=== PATIENT | male | born 1955 | race Hispanic/Latino ===

== ENCOUNTER 2018-03-10 07:37 | Day surgery (SDC) | payer BC ==
[2015-02-03 12:45] VITALS: BMI 24.3
[2018-03-10] MEDS ORDERED: Benzocaine/Butamben/Tetracai 14-2-2% TOP Spray TOP ONE (07:56)
[2018-03-10] MEDS ORDERED: Lactated Ringer's 1,000 ML IV SCH (08:00)
[2018-03-10] MEDS ORDERED: Iohexol 240 (50 ml) ONE (08:27)
[2018-03-10] MEDS ORDERED: Midazolam 2 MG/2 ML VIAL ONE (08:39)
[2018-03-10] MEDS ORDERED: Propofol 10 mg/ml Inj (20 ML) ONE ×2 (08:40→10:10)
[2018-03-10] MEDS ORDERED: Desflurane Inhalation Anesthetic Liq (240 ml) ONE (08:46)
[2018-03-10 12:19] VITALS: BP 134/95; PULSE 53; RESP 16; TEMP 97.9; O2SAT 97
[2018-03-11 19:05] LABS: GASTRIN 45 pg/mL (<=100)
== END 2018-03-10 12:50 | disposition home or self-care (01) ==
LOC: ENDO 07:37
PROVIDERS: ATTEND Internal Medicine Gastroenterology
DX: K25.9 Gastric ulcer, unspecified as acute or chronic, without hemorrhage or perforation (principal); K29.50 Unspecified chronic gastritis without bleeding; K31.89 Other diseases of stomach and duodenum
CPT/HCPCS: 43239; 82941; 86316; 88305; 88312; 88342; J2001; J2250; J2704; J3010; J7040; J7120; Q9966

== ENCOUNTER 2018-06-18 18:23 | Emergency (ER) | payer BC ==
[2018-06-18 18:23] VITALS: BMI 24.3
[2018-06-18] MEDS ORDERED: Sodium Chloride 0.9% 1,000 ML IV STA (19:04)
[2018-06-18 20:22] LABS: HEMOGLOBIN 17.5 g/dL (14.0-18.0); MEAN CELL VOLUME 95.5 fl (80.0-105.0); MEAN CORPUSCULAR HGB CONC 34.6 g/dl (31.0-37.0); RBC 5.3 10^6/uL (3.5-6.1); RED CELL DISTRIBUTION WIDTH 15.3 % (11.5-14.5); WHITE BLOOD COUNT 15.8 10^3/uL (4.5-11.0)
[2018-06-18 20:23] LABS: BASO # 0.03 K/mm3 (0.0-2.0); BASO % 0.2 % (0.0-3.0); EOS # 0.3 (0.0-0.7); EOS % 1.7 % (1.5-5.0); GRAN # 12.85 (1.4-6.5); GRAN % 81.3 % (50.0-68.0); LYMPH # 1.7 (1.2-3.4); LYMPH % 10.8 % (22.0-35.0); MEAN PLATELET VOLUME 9.5 fl (7.0-11.0)
[2018-06-18 20:29] LABS: INR 1.05
[2018-06-18 20:42] LABS: ALB/GLOB RATIO 1.2 (1.1-1.8); ALBUMIN 4.3 g/dL (3.0-4.8); BLOOD UREA NITROGEN 11 mg/dL (7-21); CALCIUM 9.9 mg/dL (8.4-10.5); GFR NON-AFRICAN AMERICAN > 60
[2018-06-18 20:43] LABS: ALT/SGPT 23 U/L (7-56); AST/SGOT 25 U/L (17-59); TROPONIN I < 0.01 ng/mL
[2018-06-18 22:25] LABS: URINE BILIRUBIN SMALL (NEGATIVE); URINE BLOOD TRACE-LYSED (NEGATIVE); URINE GLUCOSE (UA) NEGATIVE (NEGATIVE); URINE LEUKOCYTE ESTERASE NEGATIVE Leu/uL (NEGATIVE); URINE PROTEIN TRACE mg/dL (<30 mg/dL); URINE UROBILINOGEN 0.2 E.U./dL (<1 E.U./dL)
[2018-06-18 22:30] LABS: URINE APPEARANCE CLEAR (CLEAR); URINE COLOR YELLOW (YELLOW)
[2018-06-18] MEDS ORDERED: cefTRIAXone 1 gm 1 GM/100 ML BAG IVPB STA (22:31)
--- NOTE | 2018-06-18 22:33 | ED PDOC ---
Arrival/HPI - General Chief Complaint: Syncope Historian: Patient - History of Present Illness Narrative History of Present Illness (Text): 06/18/18 22:32 63yo male with pmhx of Gastroparesis, anxiety who was bib EMS for having a near syncopal episode. Patient states he suddenly had a near syncopal episode after having a bowel movement. states he came back from his bathroom to sit down and was caught by his . Reports previous history of similar symptom. He denies headache, focal weakness, visual changes, nausea, vomiting, chest pain, SOB, diaphoresis, back pain, urinary symptoms, fever, URI symptoms. Past Medical History - Provider Review Nursing Documentation Reviewed: Yes - Infectious Disease Hx of Infectious Diseases: None - Tetanus Immunization Tetanus Immunization: Unknown - Cardiac Hx Pacemaker: Yes - Pulmonary Hx Respiratory Disorders: No - Neurological Hx Paralysis: No - HEENT Hx HEENT Disorder: No - Renal Hx Renal Disorder: No - Endocrine/Metabolic Hx Endocrine Disorders: No - Hematological/Oncological Hx Blood Transfusions: No Hx Blood Transfusion Reaction: No - Integumentary Hx Dermatological Disorder: No - Musculoskeletal/Rheumatological Hx Musculoskeletal Disorders: Yes - Gastrointestinal Hx Gastrointestinal Disorders: No - Genitourinary/Gynecological Hx Genitourinary Disorders: No - Psychiatric Hx Emotional Abuse: No Hx Physical Abuse: No Hx Substance Use: No - Past Surgical History Past Surgical History: No Previous - Surgical History Other/Comment: herniated disc sx 3 yrs ago - Anesthesia Hx Anesthesia Reactions: No Hx Malignant Hyperthermia: No - Suicidal Assessment Feels Threatened In Home Enviroment: No Family/Social History - Physician Review Nursing Documentation Reviewed: Yes Family/Social History: Unknown Family HX Smoking Status: Current Some Days Smoker Hx Alcohol Use: No Hx Substance Use: No Allergies/Home Meds Allergies/Adverse Reactions: Allergies No Known Allergies Allergy (Verified 06/29/14 10:32) Home Medications: Home Meds Medication Instructions Recorded Confirmed RX: Escitalopram [Lexapro] 20 mg PO TID 06/29/14 06/18/18 Alprazolam [Xanax] 0.5 mg PO DAILY PRN 06/15/16 06/18/18 Review of Systems - Physician Review All systems were reviewed & negative as marked: Yes - Review of Systems Constitutional: Normal Eyes: Normal ENT: Normal Respiratory: Normal Cardiovascular: Normal Gastrointestinal: Normal Genitourinary Male: Normal Musculoskeletal: Normal Skin: Normal Neurological: Normal, Other (Near syncope) Endocrine: Normal Hemo/Lymphatic: Normal Psychiatric: Normal Physical Exam Vital Signs Reviewed: Yes Vital Signs Temp Pulse Resp BP Pulse Ox 06/18/18 22:26 98.1 F 59 L 18 134/56 L 97 06/18/18 21:33 61 14 132/85 98 06/18/18 18:40 98.3 F 55 L 16 144/83 98 Temperature: Afebrile Blood Pressure: Normal Pulse: Regular Respiratory Rate: Normal Appearance: Positive for: Well-Appearing, Non-Toxic, Comfortable Pain Distress: None Mental Status: Positive for: Alert and Oriented X 3 - Systems Exam Head: Present: Atraumatic, Normocephalic Pupils: Present: PERRL Extroacular Muscles: Present: EOMI Conjunctiva: Present: Normal Mouth: Present: Moist Mucous Membranes Neck: Present: Normal Range of Motion Respiratory/Chest: Present: Clear to Auscultation, Good Air Exchange. No: Respiratory Distress, Accessory Muscle Use Cardiovascular: Present: Regular Rate and Rhythm, Normal S1, S2. No: Murmurs Abdomen: No: Tenderness, Distention, Peritoneal Signs Back: Present: Normal Inspection Upper Extremity: Present: Normal Inspection. No: Cyanosis, Edema Lower Extremity: Present: Normal Inspection. No: Edema Neurological: Present: GCS=15, CN II-XII Intact, Speech Normal, Motor Func Grossly Intact, Normal Sensory Function, Normal Cerebellar Funct, Gait Normal, Memory Normal, Normal 2Pt Descrimination, Other (No focal neurological deficit) Skin: Present: Warm, Dry, Normal Color. No: Rashes Psychiatric: Present: Alert, Oriented x 3, Normal Insight, Normal Concentration Medical Decision Making ED Course and Treatment: 06/19/18 01:30 PT who presented to ED for states history. He was neurologically intact in ED. Hemodynamically stable Labs EKG Chest xray Urinalysis EKG Electronic atrial pacemaker; LAD; LVH with QRS @52bpm. Pt's pacemaker was checked using [employer] in ED and it showed no lead performance issues was observed Lab was reviewed and leukocytosis with a shift was noted. Head CT - negative Blood culture and urine culture was added Rocephin added Pt was placed on OBS for IV abx and further evaluation Case was DW Dr. lopez and he accepted pt for admission. Result and place was the pt and he agreed - Lab Interpretations Lab Results: 06/18/18 19:57 06/18/18 19:57 Lab Results 06/18/18 22:17: Urine Color Yellow, Urine Appearance Clear, Urine pH 6.0, Ur Specific [place] 1.025, Urine Protein Trace H, Urine Glucose (UA) Negative, Urine Ketones Trace H, Urine Blood Trace-lysed H, Urine Nitrate Negative, Urine Bilirubin Small H, Urine Urobilinogen 0.2, Ur Leukocyte Esterase Negative, Urine RBC Pending, Urine WBC Pending 06/18/18 19:57: Sodium 137, Potassium 4.6, Chloride 100, Carbon Dioxide 30, Anion Gap 12, BUN 11, Creatinine 0.9, Est GFR ( Amer) > 60, Est GFR (Non- Af Amer) > 60, Random Glucose 117 H, Calcium 9.9, Magnesium 1.9, Total Bilirubin 0.8, AST 25, ALT 23, Alkaline Phosphatase 81, Lactate Dehydrogenase 374, Total Creatine Kinase 34 L, Troponin I < 0.01, Total Protein 7.7, Albumin 4.3, Globulin 3.5, Albumin/Globulin Ratio 1.2 06/18/18 19:57: PT 12.0, INR 1.05, APTT 27.0 06/18/18 19:57: WBC 15.8 H, RBC 5.30, Hgb 17.5, Hct 50.6, MCV 95.5, MCH 33.0, MCHC 34.6, RDW 15.3 H, Plt Count 164, MPV 9.5, Gran % 81.3 H, Lymph % (Auto) 10.8 L, [place] % (Auto) 6.0, Eos % (Auto) 1.7, Baso % (Auto) 0.2, Gran # 12.85 H, Lymph # (Auto) 1.7, Nicholas # (Auto) 1.0 H, Eos # (Auto) 0.3, Baso # (Auto) 0.03 - RAD Interpretation Radiology Orders: 06/18/18 19:02 HEAD W/O CONTRAST [CT] Stat 06/18/18 20:49 CHEST PORTABLE [RAD] Stat - Medication Orders Current Medication Orders: Ceftriaxone Sodium (Rocephin 1 Gram Ivpb) 1 gm in 100 mls @ 200 mls/hr IVPB STAT STA; Protocol Stop: 06/18/18 23:00 Discontinued Medications Sodium Chloride (Sodium Chloride 0.9%) 1,000 mls @ 999 mls/hr IV .Q1H1M STA Stop: 06/18/18 20:04 Last Admin: 06/18/18 19:45 Dose: 999 mls/hr eMAR Start Stop Document 06/18/18 19:45 [email or web address] (Rec: 06/18/18 19:46 [email or web address] [id number]) Intravenous Solution Start Date 06/18/18 Start Time 19:46 Disposition/Present on Arrival - Present on Arrival Any Indicators Present on Arrival: No History of DVT/PE: No History of Uncontrolled Diabetes: No Urinary Catheter: No History of Decub. Ulcer: No History Surgical Site Infection Following: None - Disposition Have Diagnosis and Disposition been Completed?: Yes Diagnosis: Leukocytosis, Near syncope Disposition: HOSPITALIZED Disposition Time: 22:25 Patient Plan: Admission Patient Problems: Current Active Problems Problem Status Onset Leukocytosis Acute Near syncope Acute Condition: FAIR
[2018-06-18 22:37] LABS: URINE BACTERIA FEW (NEG)
[2018-06-19 05:18] VITALS: BP 140/80; PULSE 56; RESP 26; TEMP 98.9; O2SAT 94
--- NOTE | 2018-06-19 08:10 | CT ---
Date of service: 06/18/2018 PROCEDURE: CT HEAD WITHOUT CONTRAST. HISTORY: syncope COMPARISON: 06/29/2014 TECHNIQUE: Axial computed tomography images were obtained through the head/brain without intravenous contrast. Radiation dose: Total exam DLP = 938.19 mGy-cm. This CT exam was performed using one or more of the following dose reduction techniques: Automated exposure control, adjustment of the mA and/or kV according to patient size, and/or use of iterative reconstruction technique. FINDINGS: HEMORRHAGE: No intracranial hemorrhage. BRAIN: No mass effect or edema. Minimal microvascular changes adjacent to the left frontal horn. No acute findings VENTRICLES: Unremarkable. No hydrocephalus. CALVARIUM: Unremarkable. PARANASAL SINUSES: Unremarkable as visualized. No significant inflammatory changes. MASTOID AIR CELLS: Unremarkable as visualized. No inflammatory changes. OTHER FINDINGS: The report concurs with the preliminary [facility] report IMPRESSION: No acute intracranial finding
--- NOTE | 2018-06-19 09:26 | CP.PCM.HP ---
<Ej Kirkland - Last Filed: 06/19/18 19:29> History of Present Illness - History of Present Illness History of Present Illness: H&P for Dr. Bradshaw Service CC: Syncopal episode This is a 63 yo M with PMH of gastroparesis, anxiety, dyslipidemia, and symptomatic persistent bradycardia s/p pacer placement who presented to [facility] via EMS for syncopal episode at home. As per patient, he was straining to move his bowels on the toilet, when he suddenly felt diaphoretic, lightheaded, and dizzy. He attempted to make it from his bathroom to his couch to lay down, but was unable to make it, so sat down on the floor and called for his , which is when his memories end. He reports awakening after what he believes was several minutes, with his holding him upright and calling EMS. Denies tongue biting, loss of bladder/bowel control, head trauma, head/neck pain or stiffness, fevers, vision changes, focal weakness, shortness of breath, chest pain, palpitations, focal or generalized paresthesias. At time of exam, he is fully awake, alert, oriented to self/location/year, able to move all extremities spontaneously and on command. He denies any report from his of generalized shaking or tremors. Denies any similar event in the past. Reports compliance with home meds, no recent med changes, no issues with PO intake (which is regular), no recent head trauma, no falls, normal gait. Of note, in the ED, EKG obtained was notable for atrially paced rhythm, Pacer interrogation was unremarkable, and Head CT was negative for acute intracranial process. 12-system ROS reviewed and negative, except as above. 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 Tate Present on Admission - Present on Admission Any Indicators Present on Admission: No History of DVT/PE: No History of Uncontrolled Diabetes: No Review of Systems - Review of Systems All systems: reviewed and no additional remarkable complaints except (as per HPI) Past Patient History - Infectious Disease Hx of Infectious Diseases: None - Tetanus Immunizations Tetanus Immunization: Unknown - Past Social History Smoking Status: Current Some Days Smoker - CARDIAC Hx Pacemaker: Yes - PULMONARY Hx Respiratory Disorders: No - NEUROLOGICAL Hx Paralysis: No - HEENT Hx HEENT Problems: No - RENAL Hx Chronic Kidney Disease: No - ENDOCRINE/METABOLIC Hx Endocrine Disorders: No - HEMATOLOGICAL/ONCOLOGICAL Hx Blood Transfusions: No Hx Blood Transfusion Reaction: No - INTEGUMENTARY Hx Dermatological Problems: No - MUSCULOSKELETAL/RHEUMATOLOGICAL Hx Musculoskeletal Disorders: Yes - GASTROINTESTINAL Hx Gastrointestinal Disorders: No - GENITOURINARY/GYNECOLOGICAL Hx Genitourinary Disorders: No - PSYCHIATRIC Hx Emotional Abuse: No Hx Physical Abuse: No Hx Substance Use: No - SURGICAL HISTORY Other/Comment: herniated disc sx 3 yrs ago - ANESTHESIA Hx Anesthesia Reactions: No Hx Malignant Hyperthermia: No Meds Home Medications: Home Medication List Medication Instructions Recorded Confirmed Type RX: Doxycycline Hyclate [Doryx] 100 mg PO BID #28 cap 06/19/18 Rx Allergies/Adverse Reactions: Allergies Allergy/AdvReac Type Severity Reaction Status Date / Time No Known Allergies Allergy Verified 06/29/14 10:32 Physical Exam - Constitutional Appears: Non-toxic, No Acute Distress - Head Exam Head Exam: ATRAUMATIC, NORMAL INSPECTION, NORMOCEPHALIC - Eye Exam Eye Exam: EOMI, Normal appearance, PERRL. absent: Conjunctival injection, Scleral icterus Pupil Exam: PERRL. absent: Fixed, Irregular, Unequal - ENT Exam ENT Exam: Mucous Membranes Moist. absent: Mucous Membranes Dry - Neck Exam Neck exam: Positive for: Full Rom, Normal Inspection. Negative for: Lymphadenopathy, Tenderness - Respiratory Exam Respiratory Exam: Clear to Auscultation Bilateral, NORMAL BREATHING PATTERN. absent: Accessory Muscle Use, Chest Wall Tenderness, Decreased Breath Sounds, Prolonged Expiratory Phase, Rales, Rhonchi, Wheezes, Stridor - Cardiovascular Exam Cardiovascular Exam: Bradycardia, REGULAR RHYTHM, +S1, +S2. absent: Tachycardia, Irregular Rhythm, JVD, +S4 - GI/Abdominal Exam GI & Abdominal Exam: Hypoactive Bowel Sounds, Soft. absent: Diminished Bowel Sounds, Distended, Firm, Hyperactive Bowel Sounds, Normal Bowel Sounds, Rigid, Tenderness - Extremities Exam Extremities exam: Positive for: normal capillary refill, normal inspection, pedal pulses present. Negative for: calf tenderness, pedal edema, tenderness - Back Exam Back exam: absent: CVA tenderness (L), CVA tenderness (R) - Neurological Exam Additional comments: awake and alert, following all commands, motor grossly intact and equal in all extremities, 5/5 flexion/extension/jelly maker strength in bilateral upper extremities No appreciable facial droop, uvula midline, no tongue deviation with extrusion - Psychiatric Exam Psychiatric exam: Normal Affect, Normal Mood - Skin Skin Exam: Dry, Intact, Normal Color, Warm Results - Vital Signs Recent Vital Signs: Last Vital Signs Temp 98.9 F 06/19/18 05:17 Pulse 56 L 06/19/18 05:17 Resp 26 H 06/19/18 05:17 BP 140/80 06/19/18 05:17 Pulse Ox 94 L 06/19/18 05:17 - Labs Result Diagrams: 06/18/18 19:57 06/18/18 19:57 Labs: Laboratory Results - last 24 hr 06/18/18 06/18/18 06/18/18 19:57 19:57 19:57 WBC 15.8 H RBC 5.30 Hgb 17.5 Hct 50.6 MCV 95.5 MCH 33.0 MCHC 34.6 RDW 15.3 H Plt Count 164 MPV 9.5 Gran % 81.3 H Lymph % (Auto) 10.8 L [place] % (Auto) 6.0 Eos % (Auto) 1.7 Baso % (Auto) 0.2 Gran # 12.85 H Lymph # (Auto) 1.7 [place] # (Auto) 1.0 H Eos # (Auto) 0.3 Baso # (Auto) 0.03 PT 12.0 INR 1.05 APTT 27.0 Sodium 137 Potassium 4.6 Chloride 100 Carbon Dioxide 30 Anion Gap 12 BUN 11 Creatinine 0.9 Est GFR ( Amer) > 60 Est GFR (Non-Af Amer) > 60 Random Glucose 117 H Calcium 9.9 Magnesium 1.9 Total Bilirubin 0.8 AST 25 ALT 23 Alkaline Phosphatase 81 Lactate Dehydrogenase 374 Total Creatine Kinase 34 L Troponin I < 0.01 Total Protein 7.7 Albumin 4.3 Globulin 3.5 Albumin/Globulin Ratio 1.2 Urine Color Urine Appearance Urine pH Ur Specific [place] Urine Protein Urine Glucose (UA) Urine Ketones Urine Blood Urine Nitrate Urine Bilirubin Urine Urobilinogen Ur Leukocyte Esterase Urine RBC Urine WBC Ur Epithelial Cells Urine Bacteria 06/18/18 22:17 WBC RBC Hgb Hct MCV MCH MCHC RDW Plt Count MPV Gran % Lymph % (Auto) [place] % (Auto) Eos % (Auto) Baso % (Auto) Gran # Lymph # (Auto) [place] # (Auto) Eos # (Auto) Baso # (Auto) PT INR APTT Sodium Potassium Chloride Carbon Dioxide Anion Gap BUN Creatinine Est GFR ( Amer) Est GFR (Non-Af Amer) Random Glucose Calcium Magnesium Total Bilirubin AST ALT Alkaline Phosphatase Lactate Dehydrogenase Total Creatine Kinase Troponin I Total Protein Albumin Globulin Albumin/Globulin Ratio Urine Color Yellow Urine Appearance Clear Urine pH 6.0 Ur Specific [place] 1.025 Urine Protein Trace H Urine Glucose (UA) Negative Urine Ketones Trace H Urine Blood Trace-lysed H Urine Nitrate Negative Urine Bilirubin Small H Urine Urobilinogen 0.2 Ur Leukocyte Esterase Negative Urine RBC 1 - 3 Urine WBC 2 - 5 Ur Epithelial Cells 3 - 4 Urine Bacteria Few Assessment & Plan - Assessment and Plan (Free Text) Assessment: This is a 63 yo M with PMH of gastroparesis, anxiety, dyslipidemia, and symptomatic persistent bradycardia s/p pacer placement who presented to [facility] via EMS for syncopal episode at home. As per patient, he was straining to move his bowels on the toilet, when he suddenly felt diaphoretic, lightheaded, and dizzy. Suspect likely vasovagal syncope 2/2 straining to move bowels, arrhythmia and acute large stroke ruled out. Plan: 1) syncopal episode 2) gastroparesis 3) anxiety 4) dyslipidemia 5) symptomatic persistent bradycardia s/p pacer - normal interrogation ddx: vasovagal syncope vs acute stroke vs seizure vs arrhythmia vs hypoglycemia 2/2 poor intake from gastroparesis -not hypoglycemic on labs and reports routine PO intake at home despite gastroparesis -EKG and pacer interrogation unremarkable, trop x1 negative -Head CT negative for acute intracranial findings, no bleeds or large strokes observed -straining to move bowels prior to syncopal episode, rapid recovery, and lack of any neurologic deficits strongly suggestive of vasovagal over seizure/stroke -Leukocytosis noted, ID consulted, appreciate their recs; Docy 100mg BID x14 days, testing for Lyme's and HIV, follow up with ID in 2 weeks At this time, patient's symptoms have resolved, he is hemodynamically stable, and is appropriate for discharge. Prescription for Doxycycline transmitted to his pharmacy and patient's notified of the prescription and follow up with ID in 2 weeks (unable to reach patient and his cell phone voicemail was full). He will resume all other home medications as prescribed. Additionally, he will follow up with his PMD (Dr. Tate) within 1 week, and will return to the ED if he experiences worsening or new concerning symptoms. Reviewed and discussed with attending, Dr. Bradshaw <Freddy Bradshaw S - Last Filed: 06/22/18 09:32> Results - Vital Signs Recent Vital Signs: Last Vital Signs Temp 98.9 F 06/19/18 05:17 Pulse 56 L 06/19/18 05:17 Resp 26 H 06/19/18 05:17 BP 140/80 06/19/18 05:17 Pulse Ox 94 L 06/19/18 05:17 - Labs Result Diagrams: 06/18/18 19:57 06/18/18 19:57 Assessment & Plan - Assessment and Plan (Free Text) Plan: Pt seen and examined. This is a late entry. I reviewed the note of the medical lab tech instructor and I agree with the note including the assessment and plan. I reviewed the medications and last labs. Pt with syncopal episode. He has hx of these episodes in the past. He does not wish to stay in the hospital. He will be given another dose of IV Rocephin. He had a vasovagal episode. CT head shows no acute abnormalities. He has a pacemaker and get checked regularly. He will be discharged home and f/u with PMD. The pt will be given Doxy to take as outpt. Pt with anxiety history and it is controlled on his medications. He will continue his medications from home. He has dyslipidemia. Unlikely he had a stroke or Sz at home.
--- NOTE | 2018-06-19 09:30 | CARD ---
APPROVED REPORT Date of service: 06/18/2018 EKG Measurement Heart [id number] <Conclusion> Electronic atrial pacemaker Left axis deviation Left ventricular hypertrophy with QRS widening Abnormal ECG
[2018-06-19] MEDS ORDERED: cefTRIAXone 1 gm 1 GM/100 ML BAG IVPB SCH (10:00)
--- NOTE | 2018-06-19 11:01 | RAD ---
Date of service: 06/18/2018 HISTORY: admission COMPARISON: Portable chest 06/29/2014. FINDINGS: LUNGS: No active pulmonary disease. PLEURA: No significant pleural effusion identified, no pneumothorax apparent. CARDIOVASCULAR: No aortic atherosclerotic calcification present. Normal cardiac size. No pulmonary vascular congestion. Interval deployment of permanent cardiac pacemaker is noted with generator noted at the left pectoralis region and 2 leads identified entering into the chest by an apparent left subclavian approach and entering into the region of the heart terminally. OSSEOUS STRUCTURES: No significant abnormalities. VISUALIZED UPPER ABDOMEN: Normal. OTHER FINDINGS: None. IMPRESSION: No interval acute cardiopulmonary disease appreciated. Interval bipolar permanent cardiac pacemaker deployment as discussed above.
--- NOTE | 2018-06-19 17:43 | CON ---
DATE: 06/19/2018 HISTORY OF PRESENT ILLNESS: This is a 63-year-old male with history of gastroparesis who in the past has had significant workup of his nausea and gastroparesis. He is not a diabetic. He states he has had multiple upper endoscopy and lower endoscopy, which has been negative. He has had an MRI of the head, CAT scan of the head, CAT scan of his chest and abdomen and significant workup. He has been followed by various doctors in [facility] including a neurologist in [place] and has had extensive workup. The etiology of gastroparesis and nausea has been unclear. PAST MEDICAL HISTORY: Significant for gastroparesis, depression. PAST SURGICAL HISTORY: Significant for a pacemaker which was placed for bradycardia. ALLERGIES: HE HAS NO KNOWN ALLERGIES. SOCIAL HISTORY: He lives here in [place]. He does have a dog. [place] He is exposed territory outside of [place]. MEDICATIONS: At home include the patient to be on Lexapro and Xanax. PHYSICAL EXAMINATION GENERAL: The patient is in bed, in no acute distress. He answers questions appropriately. VITAL SIGNS: Temperature 98, respiratory rate 26, heart rate of 55, blood pressure 130/50. HEENT: Unremarkable. NECK: Supple. LUNGS: Decreased breath sounds. HEART: Normal S1, S2. ABDOMEN: Soft. LABORATORY DATA: White count of 15,800, hemoglobin of 17, hematocrit is 50, and platelets of 164, 81% granulocytosis, coagulation is noted. Chemistries are reviewed. Urinalysis is noted. DIAGNOSTIC DATA: The patient also had a CAT scan of the head which is negative. Chest x-ray which is negative. The history and physical examination is reviewed. ASSESSMENT AND PLAN: A 63-year-old male with history of anxiety and gastroparesis, who has leukocytosis, dyspnea, and with systemic inflammatory response syndrome. He has a dog. He does have bradycardia with a pacemaker and syncope. Workup as per cardiology. The patient has seen Dr. Whitley in the past. We will start empiric doxycycline, order to . Because of his age, we will order a human immunodeficiency virus test and cultures have been ordered. The patient states he wants to go home and follow up with Dr. Tate as outpatient. Blood and urine cultures will be followed. Recommend empiric doxycycline for now pending initial results. We will follow with you. Juma See MD
== END 2018-06-19 10:00 | disposition home or self-care (01) ==
LOC: ED 18:23 → ERH 22:29 → UNDOADMOB 22:29 → ERH 06-19 09:03
DX: R55 Syncope and collapse (principal); D72.829 Elevated white blood cell count, unspecified; K31.84 Gastroparesis; E78.5 Hyperlipidemia, unspecified; F41.9 Anxiety disorder, unspecified; Z95.0 Presence of cardiac pacemaker; F17.210 Nicotine dependence, cigarettes, uncomplicated
CPT/HCPCS: 70450; 71045; 80053; 81001; 82550; 83615; 83735; 84484; 85025; 85610; 85730; 87040; 87086; 93005; 96374; 96376; 99285; J0696; J7030

== ENCOUNTER 2018-11-14 13:23 | Day surgery (SDC) | payer BC ==
[2018-11-12 11:14] VITALS: BMI 19.9
[~2018-11-14 13:23] MED LIST: Sodium Chloride 0.9% 1,000 ML IV SCH
[2018-11-14 15:44] LABS: BASO # 0.03 K/mm3 (0.0-2.0); BASO % 0.3 % (0.0-3.0); EOS # 0.2 (0.0-0.7); EOS % 2.4 % (1.5-5.0); HEMOGLOBIN 17.2 g/dL (14.0-18.0); LYMPH % 21.1 % (22.0-35.0); MEAN CELL VOLUME 94.7 fl (80.0-105.0); MEAN CORPUSCULAR HEMOGLOBIN 32.8 pg (25.0-35.0); MEAN CORPUSCULAR HGB CONC 34.6 g/dl (31.0-37.0); MONO # 0.9 (0.1-0.6); MONO % 9.3 % (1.0-6.0); RBC 5.25 10^6/uL (3.5-6.1); RED CELL DISTRIBUTION WIDTH 14.4 % (11.5-14.5); WHITE BLOOD COUNT 9.5 10^3/uL (4.5-11.0)
[2018-11-14] MEDS ORDERED: Sodium Chloride 0.9% 1,000 ML IV SCH (15:45)
[2018-11-14 15:47] LABS: INR 1.08; PARTIAL THROMBOPLASTIN TIME 34.2 Seconds (26.9-38.3)
[2018-11-14] MEDS ORDERED: Propofol 10 mg/ml Inj (20 ML) ONE ×5 (15:58→17:22)
[2018-11-14] MEDS ORDERED: Midazolam 2 MG/2 ML VIAL ONE (15:58)
[2018-11-14] MEDS ORDERED: Ketamine 10 mg/ml Inj (20 ml) ONE (16:04)
[2018-11-14] MEDS ORDERED: ePHEDrine 50 mg/ml Inj ONE (17:10)
[2018-11-14] MEDS ORDERED: HYDROmorphone 0.5 mg/0.5 ml ISec IVP PRN (17:57)
--- NOTE | 2018-11-14 18:20 | RAD ---
Date of service: 11/14/2018 PROCEDURE: Fluoroscopy up to 1 hr. HISTORY: G-TUBE PLACEMENT COMPARISON: None TECHNIQUE: Total fluoroscopic time (continuous mode) utilized during the procedure 43.0 seconds. Total exam DLP: 6.00 (mGy). FINDINGS: Submitted images from the current procedure: 2.0 IMPRESSION: Less than 1 hr fluoroscopic assistance provided during performance of the procedure.
[2018-11-14] MEDS ORDERED: HYDROmorphone 0.5 mg/0.5 ml ISec IVP ONE ×2 (18:28→18:50)
[2018-11-14] MEDS ORDERED: HYDROmorphone 0.5 mg/0.5 ml ISec ONE ×2 (18:28→18:53)
[2018-11-14] MEDS ORDERED: Dextrose 5%/0.45% NS 1,000 ML IV SCH (19:15)
[2018-11-14] MEDS: HYDROmorphone 0.5 mg/0.5 ml ISec IVP PRN (21:27)
--- NOTE | 2018-11-14 21:52 | CP.PCM.CON ---
<Ruma Umaña - Last Filed: 11/14/18 21:45> History of Present Illness - History of Present Illness History of Present Illness: General Surgery Dr. Gage 63 y/o M w/ PMHx of bradycardia w/ pacemaker [place] [facility] [place]-J placement. Pt has been suffering from intractable nausea for months w/ considerable weight loss 2/2 anorexia. Pt was worked up as outpatient w/ no identifiable cause for nausea. Decision was made to place feeding tube 2/2 malnutrition. Pt tolerated the procedure well w/ no complications. Post- procedure, pt c/o significant nausea, now resolved. Pt admits to manageable abd pain, and denies CP, SOB, F/C, N/V. PMHx: bradycardia, syncope, polycythemia, anxiety, herniated disks, pilonidal cyst Meds: reviewed in chart NKDA PSHx: R total knee, cardiac cath, pacemaker, discectomy, EGD w/ botox inj, SHx: occasional marijuana, <1ppd x40yrs FHx: noncontributory Review of Systems - Review of Systems All systems: reviewed and no additional remarkable complaints except (see HPI) Past Patient History - Infectious Disease Hx of Infectious Diseases: None - Tetanus Immunizations Tetanus Immunization: Unknown - Past Social History Smoking Status: Current Some Days Smoker - CARDIAC Hx Pacemaker: Yes - PULMONARY Hx Respiratory Disorders: No - NEUROLOGICAL Hx Paralysis: No - HEENT Hx HEENT Problems: No - RENAL Hx Chronic Kidney Disease: No - ENDOCRINE/METABOLIC Hx Endocrine Disorders: No - HEMATOLOGICAL/ONCOLOGICAL Hx Blood Transfusions: No Hx Blood Transfusion Reaction: No - INTEGUMENTARY Hx Dermatological Problems: No - MUSCULOSKELETAL/RHEUMATOLOGICAL Hx Musculoskeletal Disorders: Yes - GASTROINTESTINAL Hx Gastrointestinal Disorders: No - GENITOURINARY/GYNECOLOGICAL Hx Genitourinary Disorders: No - PSYCHIATRIC Hx Emotional Abuse: No Hx Physical Abuse: No Hx Substance Use: Yes (MED[employer] MARIJUANA RARELY) - SURGICAL HISTORY Hx Surgeries: Yes - ANESTHESIA Hx Anesthesia Reactions: No Hx Malignant Hyperthermia: No Meds Allergies/Adverse Reactions: Allergies Allergy/AdvReac Type Severity Reaction Status Date / Time No Known Allergies Allergy Verified 06/29/14 10:32 - Medications Medications: Current Medications Hydromorphone HCl (Dilaudid) 0.5 mg IVP Q6H PRN PRN Reason: Pain, severe (8-10) Last Admin: 05/03/19 21:27 Dose: 0.5 mg Dextrose/Sodium Chloride (Dextrose 5%/0.45% Ns 1000 Ml) 1,000 mls @ 80 mls/hr IV .[id number] [facility] Metoclopramide HCl (Reglan) 10 mg IV ONCE PRN PRN Reason: Nausea/Vomiting Ondansetron HCl (Zofran Inj) 4 mg IVP ONCE PRN PRN Reason: Nausea/Vomiting Ondansetron HCl (Zofran Inj) 4 mg IVP Q6H PRN PRN Reason: Nausea/Vomiting Pantoprazole Sodium (Protonix Inj) 40 mg IVP Q12 [facility] Last Admin: 11/14/18 21:27 Dose: 40 mg Physical Exam - Constitutional Appears: Non-toxic, No Acute Distress - Head Exam Head Exam: NORMAL INSPECTION - Eye Exam Eye Exam: Normal appearance - ENT Exam ENT Exam: Mucous Membranes Moist - Respiratory Exam Respiratory Exam: NORMAL BREATHING PATTERN. absent: Accessory Muscle Use, Respiratory Distress - Cardiovascular Exam Cardiovascular Exam: REGULAR RHYTHM. absent: Bradycardia, Tachycardia - GI/Abdominal Exam GI & Abdominal Exam: Soft, Tenderness (appropriate TTP). absent: Distended, Firm, Guarding, Rebound, Rigid Additional comments: PEG-J in place, site c/d/i - Extremities Exam Extremities exam: Positive for: normal inspection - Neurological Exam Neurological exam: Alert, Oriented x3 - Psychiatric Exam Psychiatric exam: Normal Affect, Normal Mood - Skin Skin Exam: Dry, Intact, Normal Color, Warm Results - Vital Signs Recent Vital Signs: Last Vital Signs Temp 97.5 F L 11/14/18 19:27 Pulse 63 11/14/18 19:27 Resp 18 11/14/18 19:27 BP 122/73 11/14/18 19:27 Pulse Ox 98 11/14/18 19:27 - Labs Result Diagrams: 11/14/18 15:00 Labs: Laboratory Results - last 24 hr 11/14/18 11/14/18 15:00 15:00 WBC 9.5 D RBC 5.25 Hgb 17.2 Hct 49.7 MCV 94.7 MCH 32.8 MCHC 34.6 RDW 14.4 Plt Count 226 MPV 10.0 Neut % (Auto) 66.9 Lymph % (Auto) 21.1 L [place] % (Auto) 9.3 H Eos % (Auto) 2.4 Baso % (Auto) 0.3 Lymph # (Auto) 2.0 [place]ite # (Auto) 0.9 H Eos # (Auto) 0.2 Baso # (Auto) 0.03 Absolute Neuts (auto) 6.34 PT 12.0 INR 1.08 APTT 34.2 Assessment & Plan - Assessment and Plan (Free Text) Assessment: 63 y/o M w/ intractable nausea of unknown cause s/p PEG-J placement by GI Plan: - cont tube management per GI - restart home meds - anti-emetics - pain management - monitor vitals - GI/DVT PPx - encourage OOB to chair/Amb Pt discussed w/ Dr. Merari Umaña PGY3 <Steven Gage - Last Filed: 11/18/18 16:32> Results - Vital Signs Recent Vital Signs: Last Vital Signs Temp 98.1 F 11/16/18 14:00 Pulse 62 11/16/18 14:00 Resp 18 11/16/18 14:00 BP 138/77 11/16/18 14:00 Pulse Ox 94 L 11/16/18 14:00 - Labs Result Diagrams: 11/16/18 06:30 11/16/18 06:30 Assessment & Plan - Assessment and Plan (Free Text) Plan: Patient was seen, evaluated and examined by me at the bedside. I agree with assessment and plan as stated in the resident's note.
[2018-11-14] MEDS ORDERED: HYDROmorphone 0.5 mg/0.5 ml ISec IVP STA (23:57)
[2018-11-15] MEDS: HYDROmorphone 0.5 mg/0.5 ml ISec IVP PRN (06:10)
[2018-11-15 07:32] LABS: BASO # 0.02 K/mm3 (0.0-2.0); BASO % 0.2 % (0.0-3.0); EOS # 0.3 (0.0-0.7); EOS % 2.9 % (1.5-5.0); HEMOGLOBIN 13.8 g/dL (14.0-18.0); LYMPH # 1.7 (1.2-3.4); LYMPH % 18.3 % (22.0-35.0); MEAN CELL VOLUME 95.6 fl (80.0-105.0); MEAN CORPUSCULAR HEMOGLOBIN 31.7 pg (25.0-35.0); MEAN CORPUSCULAR HGB CONC 33.1 g/dl (31.0-37.0); MEAN PLATELET VOLUME 9.8 fl (7.0-11.0); MONO # 0.7 (0.1-0.6); MONO % 7.4 % (1.0-6.0); RBC 4.36 10^6/uL (3.5-6.1); RED CELL DISTRIBUTION WIDTH 14.6 % (11.5-14.5); WHITE BLOOD COUNT 9.2 10^3/uL (4.5-11.0)
[2018-11-15 07:52] LABS: ALB/GLOB RATIO 1.3 (1.1-1.8); ALBUMIN 3.6 g/dL (3.0-4.8); ALT/SGPT 11 U/L (7-56); AST/SGOT 21 U/L (17-59); BLOOD UREA NITROGEN 12 mg/dL (7-21); CALCIUM 8.7 mg/dL (8.4-10.5); GFR NON-AFRICAN AMERICAN > 60
--- NOTE | 2018-11-15 08:27 | CP.PCM.PN ---
<Ruma Umaña - Last Filed: 11/15/18 08:23> Subjective - Date & Time of Evaluation Date of Evaluation: 11/15/18 Time of Evaluation: 08:23 - Subjective Subjective: General Surgery Dr. Gage Pt seen and examined @bedside. No acute events overnight. Pt c/o pain at incision site this AM. Pt admits to nausea, improved w/ Zofran. paradise F/C, CP, SOB, vomiting, D/C. currently NPO. (+)flatus. Objective - Vital Signs/Intake and Output Vital Signs (last 24 hours): Temp Pulse Resp BP Pulse Ox 97.8 F 58 L 18 114/76 95 11/14/18 19:43 11/14/18 19:43 11/14/18 19:43 11/14/18 19:43 11/14/18 19:43 Intake and Output: 11/15/18 11/15/18 06:59 18:59 Intake Total 0 Balance 0 - Medications Medications: Current Medications Hydromorphone HCl (Dilaudid) 0.5 mg IVP Q6H PRN PRN Reason: Pain, severe (8-10) Last Admin: 11/15/18 06:10 Dose: 0.5 mg Dextrose/Sodium Chloride (Dextrose 5%/0.45% Ns 1000 Ml) 1,000 mls @ 80 mls/hr IV .[id number] [facility] Last Admin: 11/15/18 07:47 Dose: 80 mls/hr Ondansetron HCl (Zofran Inj) 4 mg IVP Q6H PRN PRN Reason: Nausea/Vomiting Last Admin: 11/15/18 06:10 Dose: 4 mg Pantoprazole Sodium (Protonix Inj) 40 mg IVP Q12 [facility] Last Admin: 11/14/18 21:27 Dose: 40 mg - Labs Labs: 11/15/18 07:00 11/15/18 07:00 PT 12.0 SECONDS (9.4-12.5) 11/14/18 15:00 INR 1.08 11/14/18 15:00 APTT 34.2 Seconds (26.9-38.3) 11/14/18 15:00 - Constitutional Appears: Non-toxic, No Acute Distress - Head Exam Head Exam: NORMAL INSPECTION - Eye Exam Eye Exam: Normal appearance - ENT Exam ENT Exam: Mucous Membranes Moist - Respiratory Exam Respiratory Exam: NORMAL BREATHING PATTERN. absent: Accessory Muscle Use, Respiratory Distress - Cardiovascular Exam Cardiovascular Exam: absent: Bradycardia, Tachycardia - GI/Abdominal Exam GI & Abdominal Exam: Soft, Tenderness (appropriate moni-incisional TTP). absent: Distended, Firm, Guarding, Rigid, Rebound Additional comments: PEG-J tube in place, site c/d/i - Extremities Exam Extremities Exam: Normal Inspection - Neurological Exam Neurological Exam: Alert, Awake, Oriented x3 - Psychiatric Exam Psychiatric exam: Normal Affect, Normal Mood - Skin Skin Exam: Dry, Intact, Normal Color, Warm Assessment and Plan - Assessment and Plan (Free Text) Assessment: 63 y/o M w/ malnutrition 2/2 intractable nausea s/p PEG-J placement by GI Plan: - consider adding PO/PEG-J pain meds - start tube feeds per GI and Nutrition recs - cont anti-emetics - cont home meds - encourage OOB to chair/Amb Pt discussed w/ Dr. Merari Umaña PGY3 <Steven Gage - Last Filed: 11/18/18 16:31> Objective - Vital Signs/Intake and Output Vital Signs (last 24 hours): Temp Pulse Resp BP Pulse Ox 98.1 F 62 18 138/77 94 L 11/16/18 14:00 11/16/18 14:00 11/16/18 14:00 11/16/18 14:00 11/16/18 14:00 - Labs Labs: 11/16/18 06:30 11/16/18 06:30 PT 12.0 SECONDS (9.4-12.5) 11/14/18 15:00 INR 1.08 11/14/18 15:00 APTT 34.2 Seconds (26.9-38.3) 11/14/18 15:00 Assessment and Plan - Assessment and Plan (Free Text) Plan: Patient was seen, evaluated and examined by me at the bedside. I agree with as sessment and plan as stated in the resident's note.
[2018-11-15] MEDS ORDERED: HYDROmorphone 1 mg/ml ISec IVP PRN (08:40)
[2018-11-15] MEDS: HYDROmorphone 1 mg/ml ISec IVP PRN ×2 (11:38→18:37)
--- NOTE | 2018-11-15 12:00 | CP.PCM.PN ---
<Madison Clement - Last Filed: 11/15/18 12:01> Subjective - Date & Time of Evaluation Date of Evaluation: 11/15/18 Time of Evaluation: 07:00 - Subjective Subjective: GI Fellow PGY5 Pt seen and evaluated at bedside, pt is s/p PEJ complaining of pain at site incision. ROS: A 12pt ROS was negative except as above. Objective - Vital Signs/Intake and Output Vital Signs (last 24 hours): Temp Pulse Resp BP Pulse Ox 97.7 F 56 L 18 122/69 97 11/15/18 06:00 11/15/18 06:00 11/15/18 06:00 11/15/18 06:00 11/15/18 06:00 Intake and Output: 11/15/18 11/15/18 06:59 18:59 Intake Total 0 Balance 0 - Medications Medications: Current Medications Hydromorphone HCl (Dilaudid) 1 mg IVP Q3H PRN PRN Reason: severepain 7-10 Last Admin: 11/15/18 11:38 Dose: 1 mg Dextrose/Sodium Chloride (Dextrose 5%/0.45% Ns 1000 Ml) 1,000 mls @ 80 mls/hr IV .[id number] [facility] Last Admin: 11/15/18 07:47 Dose: 80 mls/hr Ondansetron HCl (Zofran Inj) 4 mg IVP Q6H PRN PRN Reason: Nausea/Vomiting Last Admin: 11/15/18 11:38 Dose: 4 mg Pantoprazole Sodium (Protonix Inj) 40 mg IVP Q12 [facility] Last Admin: 11/15/18 09:02 Dose: 40 mg - Labs Labs: 11/15/18 07:00 11/15/18 07:00 PT 12.0 SECONDS (9.4-12.5) 11/14/18 15:00 INR 1.08 11/14/18 15:00 APTT 34.2 Seconds (26.9-38.3) 11/14/18 15:00 - Constitutional Appears: Non-toxic, No Acute Distress - Head Exam Head Exam: ATRAUMATIC, NORMAL INSPECTION, NORMOCEPHALIC - Eye Exam Eye Exam: EOMI, Normal appearance, PERRL - ENT Exam ENT Exam: Mucous Membranes Moist - Neck Exam Neck Exam: Full ROM, Normal Inspection - Respiratory Exam Respiratory Exam: Clear to Ausculation Bilateral, NORMAL BREATHING PATTERN - Cardiovascular Exam Cardiovascular Exam: REGULAR RHYTHM, RRR, +S1, +S2 - GI/Abdominal Exam GI & Abdominal Exam: Soft, Tenderness, Normal Bowel Sounds Additional comments: PEJ clean dry intact - Rectal Exam Rectal Exam: Deferred - Extremities Exam Extremities Exam: Full ROM, Normal Inspection - Neurological Exam Neurological Exam: Alert, Awake, Oriented x3 - Psychiatric Exam Psychiatric exam: Normal Affect, Normal Mood - Skin Skin Exam: Dry, Intact, Normal Color, Warm Assessment and Plan - Assessment and Plan (Free Text) Assessment: 1. Gastroparesis 2. Weight loss 3. s/p PEJ 4. r/o Pneumoperitonieum -Supportive control with pain medication -IV PPI bid -IVFs -NPO at this time, can advance to clear liquids and starting TF once pain is better -Tight glycemic control -Will monitor clinical course closely <Shelley Conklin V - Last Filed: 11/15/18 21:59> Objective - Vital Signs/Intake and Output Vital Signs (last 24 hours): Temp Pulse Resp BP Pulse Ox 97.3 F L 58 L 20 162/83 H 96 11/15/18 14:00 11/15/18 14:00 11/15/18 14:00 11/15/18 14:00 11/15/18 14:00 Intake and Output: 11/15/18 11/16/18 18:59 06:59 Intake Total 1620 720 Output Total 700 100 Balance 920 620 - Medications Medications: Current Medications Hydromorphone HCl (Dilaudid) 1 mg IVP Q3H PRN PRN Reason: severepain 7-10 Last Admin: 11/15/18 18:37 Dose: 1 mg Dextrose/Sodium Chloride (Dextrose 5%/0.45% Ns 1000 Ml) 1,000 mls @ 80 mls/hr IV .[id number] [facility] Last Admin: 11/15/18 07:47 Dose: 80 mls/hr Ondansetron HCl (Zofran Inj) 4 mg IVP Q6H PRN PRN Reason: Nausea/Vomiting Last Admin: 11/15/18 11:38 Dose: 4 mg Pantoprazole Sodium (Protonix Inj) 40 mg IVP Q12 [facility] Last Admin: 11/15/18 09:02 Dose: 40 mg - Labs Labs: 11/15/18 07:00 11/15/18 07:00 PT 12.0 SECONDS (9.4-12.5) 11/14/18 15:00 INR 1.08 11/14/18 15:00 APTT 34.2 Seconds (26.9-38.3) 11/14/18 15:00 Attending/Attestation - Attestation I have personally seen and examined this patient.: Yes I have fully participated in the care of the patient.: Yes I have reviewed all pertinent clinical information, including history, physical exam and plan: Yes Notes (Text): This is an addendum to the GI progress report dictated by the fellow. Patient was seen and evaluated along with the GI fellow area. Patient's is at bedside. I did discuss with the Dr. Gage earlier today. Status post feeding jejunostomy to PEG tube. 12 Alban[place] J-tube was placed in the jejunum. Patient describes complaining of significant discomfort at the PEG site which was released by the surgeon. Patient still has localized tenderness. It is reasonable to continue to close monitoring. He may benefit from the CT scan of the abdomen and pelvis with the no contrast to further evaluate his hepatic site. Which will be scheduling it in the a.m. Will consider starting the tube feeding after reviewing the CT. We may have to further loosen the PEG J-tube which will will do it after reviewing the CT. Patient has been ambulating. Otherwise he needs a DVT prophylaxis this was explained to the patient. Small gastric ulcer noticed. Started on high-dose PPI Diminutive subepithelial lesion about 5 mm in the antral area Gastric motility was decreased suggestive of gastroparesis Follow-up the labs. Discussed with the patient's was at bedside 11/15/18 21:57
[2018-11-15] MEDS ORDERED: Lidocaine 5% Oint(35 gm) TOP ONE (13:36)
[2018-11-15] MEDS ORDERED: Pneumococcal 23-Valent Vaccine IM ONE (22:47)
[2018-11-16] MEDS: HYDROmorphone 1 mg/ml ISec IVP PRN ×3 (01:07→09:38)
[2018-11-16 07:50] LABS: BASO # 0.03 K/mm3 (0.0-2.0); BASO % 0.2 % (0.0-3.0); EOS # 0.2 (0.0-0.7); EOS % 1.9 % (1.5-5.0); HEMOGLOBIN 14.9 g/dL (14.0-18.0); LYMPH # 0.9 (1.2-3.4); LYMPH % 7.6 % (22.0-35.0); MEAN CELL VOLUME 94.3 fl (80.0-105.0); MEAN CORPUSCULAR HEMOGLOBIN 32.9 pg (25.0-35.0); MEAN CORPUSCULAR HGB CONC 34.9 g/dl (31.0-37.0); MONO # 1.2 (0.1-0.6); MONO % 10.1 % (1.0-6.0); RBC 4.53 10^6/uL (3.5-6.1); RED CELL DISTRIBUTION WIDTH 14.3 % (11.5-14.5); WHITE BLOOD COUNT 12.3 10^3/uL (4.5-11.0)
--- NOTE | 2018-11-16 08:01 | CP.PCM.PN ---
<Juan C Rocha - Last Filed: 11/16/18 07:56> Subjective - Date & Time of Evaluation Date of Evaluation: 11/16/18 Time of Evaluation: 07:56 - Subjective Subjective: SURGERY NOTE FOR DR. GAGE 63M seen and examined at bedside. Patient is doing well. State PEG site tenderness is continues to be on and off. Admits to mild nausea as prior, denies any vomiting, fevers or chills. He has been tolerating liquid diet. Objective - Vital Signs/Intake and Output Vital Signs (last 24 hours): Temp Pulse Resp BP Pulse Ox 97.9 F 62 20 155/75 H 94 L 11/15/18 21:54 11/15/18 21:59 11/15/18 21:59 11/15/18 21:54 11/15/18 21:54 Intake and Output: 11/16/18 11/16/18 06:59 18:59 Intake Total 840 Output Total 300 Balance 540 - Medications Medications: Current Medications Hydromorphone HCl (Dilaudid) 1 mg IVP Q3H PRN PRN Reason: severepain 7-10 Last Admin: 11/16/18 05:56 Dose: 1 mg Dextrose/Sodium Chloride (Dextrose 5%/0.45% Ns 1000 Ml) 1,000 mls @ 80 mls/hr IV .[id number] [facility] Last Admin: 11/15/18 07:47 Dose: 80 mls/hr Ondansetron HCl (Zofran Inj) 4 mg IVP Q6H PRN PRN Reason: Nausea/Vomiting Last Admin: 11/16/18 04:58 Dose: 4 mg Pantoprazole Sodium (Protonix Inj) 40 mg IVP Q12 [facility] Last Admin: 11/15/18 22:22 Dose: 40 mg - Labs Labs: 11/15/18 07:00 11/15/18 07:00 PT 12.0 SECONDS (9.4-12.5) 11/14/18 15:00 INR 1.08 11/14/18 15:00 APTT 34.2 Seconds (26.9-38.3) 11/14/18 15:00 - Constitutional Appears: Non-toxic, No Acute Distress - ENT Exam ENT Exam: Mucous Membranes Moist - Respiratory Exam Respiratory Exam: Clear to Ausculation Bilateral, NORMAL BREATHING PATTERN - Cardiovascular Exam Cardiovascular Exam: REGULAR RHYTHM, +S1, +S2 - GI/Abdominal Exam GI & Abdominal Exam: Soft, Tenderness (around PEG site). absent: Distended, Firm, Guarding, Rigid, Rebound Additional comments: PEG in place, no erythema, mild tenderness around entry site - Extremities Exam Extremities Exam: absent: Pedal Edema, Tenderness - Neurological Exam Neurological Exam: Alert, Awake - Skin Skin Exam: Dry, Intact, Normal Color, Warm Assessment and Plan - Assessment and Plan (Free Text) Assessment: 63M s/p PEG placement POD2 for gastroparesis of unknown etiology Plan: - plan for CT scan this AM - Begin tube feeding following CT report - If tolerating will be cleared Further recs discuss with Dr. Merari Rocha, PGY3 <Steven Gage - Last Filed: 11/18/18 16:30> Objective - Vital Signs/Intake and Output Vital Signs (last 24 hours): Temp Pulse Resp BP Pulse Ox 98.1 F 62 18 138/77 94 L 11/16/18 14:00 11/16/18 14:00 11/16/18 14:00 11/16/18 14:00 11/16/18 14:00 - Labs Labs: 11/16/18 06:30 11/16/18 06:30 PT 12.0 SECONDS (9.4-12.5) 11/14/18 15:00 INR 1.08 11/14/18 15:00 APTT 34.2 Seconds (26.9-38.3) 11/14/18 15:00 Assessment and Plan - Assessment and Plan (Free Text) Plan: Patient was seen, evaluated and examined by me at the bedside. I agree with assessment and plan as stated in the resident's note.
[2018-11-16 08:35] LABS: ALB/GLOB RATIO 1.3 (1.1-1.8); ALBUMIN 3.7 g/dL (3.0-4.8); ALT/SGPT 16 U/L (7-56); AST/SGOT 23 U/L (17-59); BLOOD UREA NITROGEN 7 mg/dL (7-21); CALCIUM 8.7 mg/dL (8.4-10.5); GFR NON-AFRICAN AMERICAN > 60
[2018-11-16] MEDS ORDERED: Oxycodone/Acetaminophen 5/325 mg Tab PO PRN (10:11)
--- NOTE | 2018-11-16 10:57 | CT ---
Date of service: 11/16/2018 PROCEDURE: CT Abdomen and Pelvis without intravenous contrast HISTORY: Anorexia nervosa, restricting type. Abdominal pain, s/p PEG placement COMPARISON: 02/04/2015 abdominal ultrasound. 06/05/2016. CT abdomen and pelvis. 03/03/2018. CT abdomen and pelvis. TECHNIQUE: Unenhanced. Neither IV nor oral contrast administered Radiation dose: Total exam DLP = 300.47 mGy-cm. This CT exam was performed using one or more of the following dose reduction techniques: Automated exposure control, adjustment of the mA and/or kV according to patient size, and/or use of iterative reconstruction technique. FINDINGS: LOWER THORAX: Unremarkable. LIVER: Unremarkable. No gross lesion or ductal dilatation. GALLBLADDER AND BILE DUCTS: Unremarkable. PANCREAS: Unremarkable. No gross lesion or ductal dilatation. SPLEEN: Unremarkable. ADRENALS: Unremarkable. No mass. KIDNEYS AND URETERS: Unremarkable. No hydronephrosis. No solid mass. VASCULATURE: Atherosclerotic calcification and mural plaque present. Findings are seen throughout the aorta which is non aneurysmal. BOWEL: PEG tube courses through the stomach, duodenum, beyond the ligament of Treitz into the proximal small bowel. Constipation without fecal impaction or obstruction. APPENDIX: No abnormalities to suggest acute appendicitis. No right lower quadrant inflammatory processes identified. PERITONEUM: Unremarkable. No free fluid. No free air. LYMPH NODES: Unremarkable. No enlarged lymph nodes. BLADDER: Distended urinary bladder without focal abnormality. REPRODUCTIVE: Unremarkable. BONES: No acute fracture. OTHER FINDINGS: None. IMPRESSION: Status post PEG tube placement by history. The tip of the PEG tube is in the jejunum beyond the ligament of Treitz. Additional benign and/or incidental findings described above. These are without interval change.
--- NOTE | 2018-11-16 11:18 | CP.PCM.PN ---
Subjective - Date & Time of Evaluation Date of Evaluation: 11/16/18 Time of Evaluation: 10:00 - Subjective Subjective: GI Fellow PGY5 Progress Note Pt seen and evaluated at bedside, pt reports abdominal pain is better around PEJ. ROS: A 12pt ROS was negative except as above Objective - Vital Signs/Intake and Output Vital Signs (last 24 hours): Temp Pulse Resp BP Pulse Ox 98.2 F 58 L 19 164/87 H 96 11/16/18 06:00 11/16/18 06:00 11/16/18 06:00 11/16/18 06:00 11/16/18 06:00 Intake and Output: 11/16/18 11/16/18 06:59 18:59 Intake Total 840 Output Total 300 Balance 540 - Medications Medications: Current Medications Dextrose/Sodium Chloride (Dextrose 5%/0.45% Ns 1000 Ml) 1,000 mls @ 80 mls/hr IV .[id number] [facility] Last Admin: 11/15/18 07:47 Dose: 80 mls/hr Nicotine (Nicoderm Cq) 1 patch TD DAILY [facility] Ondansetron HCl (Zofran Inj) 4 mg IVP Q6H PRN PRN Reason: Nausea/Vomiting Last Admin: 11/16/18 04:58 Dose: 4 mg Oxycodone/Acetaminophen (Percocet 5/325 Mg Tab) 1 tab PO Q4H PRN PRN Reason: Pain, moderate (4-7) Stop: 11/19/18 10:12 Pantoprazole Sodium (Protonix Inj) 40 mg IVP Q12 [facility] Last Admin: 11/16/18 09:39 Dose: 40 mg - Labs Labs: 11/16/18 06:30 11/16/18 06:30 PT 12.0 SECONDS (9.4-12.5) 11/14/18 15:00 INR 1.08 11/14/18 15:00 APTT 34.2 Seconds (26.9-38.3) 11/14/18 15:00 - Constitutional Appears: Non-toxic, No Acute Distress - Head Exam Head Exam: ATRAUMATIC, NORMAL INSPECTION, NORMOCEPHALIC - Eye Exam Eye Exam: EOMI, Normal appearance Pupil Exam: PERRL - ENT Exam ENT Exam: Mucous Membranes Moist, Normal Exam - Neck Exam Neck Exam: Full ROM, Normal Inspection - Respiratory Exam Respiratory Exam: Clear to Ausculation Bilateral, NORMAL BREATHING PATTERN - Cardiovascular Exam Cardiovascular Exam: REGULAR RHYTHM, RRR - GI/Abdominal Exam GI & Abdominal Exam: Soft, Normal Bowel Sounds Additional comments: PEJ - Extremities Exam Extremities Exam: Full ROM, Normal Inspection - Neurological Exam Neurological Exam: Alert, Awake, Oriented x3 - Psychiatric Exam Psychiatric exam: Normal Affect, Normal Mood - Skin Skin Exam: Dry, Intact, Normal Color, Warm Assessment and Plan - Assessment and Plan (Free Text) Assessment: 1. Gastroparesis 2. Weight loss 3. s/p PEJ 4. r/o Pneumoperitonieum -Supportive control with pain medication -IV PPI bid -IVFs -Clear liquids and started TF per surgery -Tight glycemic control -CT Imaging reviewed -Elevated WBC, may add abx -Will monitor clinical course closely
[2018-11-16] MEDS ORDERED: Piperacillin/Tazobact 3.375 gm 100 ML IVPB STA (13:18)
[2018-11-16 15:01] VITALS: BP 138/77; PULSE 62; RESP 18; TEMP 98.1; O2SAT 94
== END 2018-11-16 17:04 | disposition home or self-care (01) ==
LOC: ENDO 13:23 → 5RNO 20:40 → ENDO 11-16 17:04
PROVIDERS: ATTEND Internal Medicine Gastroenterology
DX: K31.84 Gastroparesis (principal); E46 Unspecified protein-calorie malnutrition; K25.9 Gastric ulcer, unspecified as acute or chronic, without hemorrhage or perforation; F17.210 Nicotine dependence, cigarettes, uncomplicated; F12.90 Cannabis use, unspecified, uncomplicated; F41.9 Anxiety disorder, unspecified; Z95.0 Presence of cardiac pacemaker; Z68.1 Body mass index [BMI] 19.9 or less, adult
CPT/HCPCS: 36415 ×3; 44372; 74176; 80053 ×2; 85025 ×3; 85610; 85730; 88305; 88342; C9113 ×3; J0690; J1170 ×4; J2250; J2405 ×3; J2543; J2704; J2765; J3010; J7030; J7040; J7042